=== PATIENT | female | born 1985 | race Two or more races ===

== ENCOUNTER 2023-08-10 21:22 | Emergency (ER) | payer OTHER ==
[~2023-08-10] VITALS: Ht 149.9 cm; Wt 78.2 kg
[2023-08-10] MEDS ORDERED: IBUPROFEN 600 MG TAB PO ONE (21:45)
[2023-08-10] MEDS ORDERED: ONDANSETRON HCL 4 MG/2 ML VIAL IM ONE (21:45)
[2023-08-10] MEDS ORDERED: MORPHINE SULFATE INJ 2 MG/ml SYRG IM ONE (21:45)
[2023-08-10 22:04] LABS: Urine Bacteria NONE SEEN /hpf (None Seen); Urine Blood Negative /uL (Negative); Urine Clarity Clear (Clear); Urine Color Yellow (Yellow); Urine Protein, UAD Negative (Negative); Urine Specific Gravity 1.023 (1.001-1.035); Urine Urobilinogen Normal (Negative); Urine WBC 4 /hpf (0 - 5); Urine pH 6.5 (5.0-8.0)
[2023-08-10 22:32] VITALS: TEMP 97.9
[2023-08-10 22:37] LABS: Basophils # (auto) 0 10 ^3/uL (0-0.2); Basophils % (auto) 0.1 % (0.0-2.0); Eosinophils # (auto) 0.1 10 ^3/uL (0-0.8); Eosinophils % (auto) 0.8 % (0.0-7.0); Hematocrit 40.5 % (36.0-46.0); Hemoglobin 13.7 g/dL (12.2-16.2); Lymphocytes # (auto) 1.9 10 ^3/uL (0.4-5.4); Lymphocytes % (auto) 14.6 % (10.0-50.0); Mean Corpuscular Hemoglobin 29.2 pg (28.0-32.0); Mean Corpuscular Hgb Conc. 33.8 g/dL (32.0-36.0); Mean Corpuscular Volume 86.4 fL (80.0-100.0); Monocytes # (auto) 0.7 10 ^3/uL (0-1.3); Monocytes % (auto) 5.4 % (0.0-12.0); Neutrophils # (auto) 10.5 10 ^3/uL (1.6-8.6); Neutrophils % (auto) 79.1 % (37.0-80.0); Nucleated Red Blood Cells % 0.1 %; Red Blood Cells 4.69 10^6/uL (4.0-5.20); Red Cell Distribution Width 13.4 % (11.8-14.3); White Blood Cell 13.3 10^3/uL (4.4-10.8)
[2023-08-10 22:45] LABS: Anion Gap 10 (5-15); Carbon Dioxide 19 mmol/L (20-30); Chloride 106 mmol/L (98-107); Potassium 3.6 mmol/L (3.5-5.1); Sodium 135 mmol/L (136-145)
[2023-08-10 22:46] LABS: Calcium 9.1 mg/dL (8.7-10.4)
[2023-08-10 22:50] LABS: Glucose 127 mg/dL (74-106)
[2023-08-10 22:51] LABS: Alkaline Phosphatase 102 U/L (46-116); BUN/Creatinine Ratio 11.8 (10.0-20.0); Blood Urea Nitrogen 9 mg/dL (9-23); Lipase 53 U/L (12-53)
[2023-08-10 22:52] LABS: Albumin 4.3 g/dL (3.2-4.8); Aspartate Aminotransferase 34 U/L (13-40)
[2023-08-10 22:53] LABS: Bilirubin, Total 0.6 mg/dL (0.2-1.0); Total Protein 7.1 g/dL (5.7-8.2)
[2023-08-10 23:11] LABS: Alanine Aminotransferase 61 U/L (7-40)
[2023-08-11 01:00] VITALS: PULSE 55; RESP 20; O2SAT 98
[2023-08-11] MEDS ORDERED: MORPHINE SULFATE 4 MG/ML SYR/VIAL IV ONE (01:30)
[2023-08-11] MEDS ORDERED: ONDANSETRON HCL 4 MG/2 ML VIAL IV ONE (01:30)
[2023-08-11] MEDS ORDERED: IBUP-1454 PO (02:31)
[2023-08-11] MEDS ORDERED: FAMO20TA10 PO (02:31)
[2023-08-11] MEDS ORDERED: METO-281 PO (02:31)
[2023-08-11 02:35] VITALS: BP 109/68; PULSE 84; RESP 13; O2SAT 95
== END 2023-08-11 02:45 | disposition home or self-care (01) ==
LOC: ER 21:22
DX: K80.50 Calculus of bile duct without cholangitis or cholecystitis without obstruction (principal)
CPT/HCPCS: 36415; 76705; 80053; 81001; 81025; 83690; 85025; 96372; 96374; 96375; 99285; J2270; J2405